=== PATIENT | female | born 1965 | race Caucasian/White ===

== ENCOUNTER 2018-06-09 14:46 | Emergency (ER) | payer OTHER ==
[~2018-06-09] VITALS: Ht 149.9 cm; Wt 63.5 kg
[~2018-06-09 14:46] MED LIST: ACET-73 PO
[2018-06-09 15:03] VITALS: BP_SYST 137
[2018-06-09] MEDS ORDERED: NACL 0.9% 1,000 ML IV ONE (15:03)
--- NOTE | 2018-06-09 15:03 | NUR ---
Placed in room 7.
--- NOTE | 2018-06-09 15:10 | NUR ---
Pt presents to ED c/o acute onset of right hip pain x 5 days. Pt states she noted the pain while working in her yard. Pt denies recent injury or trauma. Pt's pain is described as a moderately severe constant dull pain; pain worsens with movement. Otherwise pt denies chest pain, sob, fever, chills, chest pain, abdominal pain, or any further complaints.
[2018-06-09] MEDS ORDERED: KETOROLAC TROMETHAMINE 30 MG VIAL IVP ONE (15:15)
--- NOTE | 2018-06-09 15:20 | NUR ---
ER Dr. Lira at bedside examining patient.
[2018-06-09 15:37] LABS: BASOPHILS % (AUTO) 0.6 % (0.0-2.0); EOSINOPHILS # (AUTO) 0.3 K/uL (0.0-0.4); EOSINOPHILS % (AUTO) 4.1 % (0.0-4.0); HEMATOCRIT 37.7 % (36-48); HEMOGLOBIN 12.8 g/dL (12.0-16.0); LYMPHOCYTES # (AUTO) 1.7 K/uL (1.0-5.5); LYMPHOCYTES % (AUTO) 21.4 % (20.5-51.5); MEAN CORPUSCULAR HEMOGLOBIN 30 pg (27-31); MEAN CORPUSCULAR HGB CONC 34 % (32-36); MEAN CORPUSCULAR VOLUME 89 fL (79.0-98.0); MONOCYTES # (AUTO) 0.8 K/uL (0.0-1.0); NEUTROPHILS # (AUTO) 5.4 K/uL (1.8-7.7); NEUTROPHILS % (AUTO) 63.9 % (40.0-70.0); PLATELET COUNT (AUTO) 319 K/uL (130-430); RED BLOOD CELL COUNT(AUTO) 4.22 MIL/uL (4.2-6.2); RED CELL DISTRIBUTION WIDTH 12.6 % (9.0-15.0); WHITE BLOOD COUNT (AUTO) 8.2 K/uL (4.8-10.8)
[2018-06-09 15:53] LABS: CALCIUM 9.5 mg/dL (8.4-11.0); CREATININE 0.66 mg/dL (0.55-1.30)
[2018-06-09 15:57] LABS: ALBUMIN 3.7 g/dL (3.4-4.8); TOTAL BILIRUBIN 0.3 mg/dL (0.0-1.0)
[2018-06-09 16:25] VITALS: BP_SYST 137
--- NOTE | 2018-06-09 16:25 | NUR ---
Patient given written and verbal discharge instructions and verbalizes understanding. ER MD discussed with patient the results and treatment provided. Patient in stable condition. ID arm band removed. IV catheter removed intact and dressing applied, no active bleeding. Rx of Naprosyn given. Patient educated on pain management and to follow up with PMD. Pain Scale 2/10. Opportunity for questions provided and answered. Medication side effect fact sheet provided.
== END 2018-06-09 16:25 | disposition home or self-care (01) ==
LOC: SED 14:46
DX: M70.71 Other bursitis of hip, right hip (principal); R03.0 Elevated blood-pressure reading, without diagnosis of hypertension; G43.909 Migraine, unspecified, not intractable, without status migrainosus
CPT/HCPCS: 36415; 73502; 80053; 82150; 83690; 85025; 96374; 99284; J1885

== ENCOUNTER 2018-08-18 08:52 | Emergency (ER) | payer OTHER ==
[~2018-08-18] VITALS: Ht 149.9 cm; Wt 65.8 kg
[2018-08-18 08:58] VITALS: BP_SYST 136
[2018-08-18] MEDS ORDERED: MORPHINE SULFATE 10 MG/ML VIAL IM ONE (09:15)
[2018-08-18] MEDS ORDERED: ONDANSETRON 4 MG ODT TAB PO ONE (09:15)
[2018-08-18 10:45] VITALS: BP_SYST 136
== END 2018-08-18 10:45 | disposition home or self-care (01) ==
LOC: SED 08:52
DX: M54.42 Lumbago with sciatica, left side (principal); Z88.6 Allergy status to analgesic agent; G43.909 Migraine, unspecified, not intractable, without status migrainosus
CPT/HCPCS: 72131; 72192; 96372; 99284; J2270; Q0162